=== PATIENT | female | born 1975 | race Caucasian/White ===

== ENCOUNTER → 2016-11-14 | Outpatient (CLI) | payer MEDICAID ==
[~2016-11-14] MED LIST: ALLERGY10 M1 PO; CRYSELLE 30 MCG1 TAB PO; FLONASE16 GM; KEFLEX 500MG.500 MG PO; NAPROSYN500 M1 PO; OMEPRAZOLE40 MG PO; PREDNISONE 20MG20 MG PO; VENTOLIN H0.09 MG/AC IH
[2016-11-14 08:10] LABS: URINE BILIRUBIN - DIPSTICK NEGATIVE (NEG); URINE BLOOD 1+ (NEG)
[2016-11-14 08:23] LABS: HEMOGLOBIN 12.4 g/dL (12.2-16.2); LYMPH # 2.3 K/mm3 (0.7-4.5); LYMPH % 25.6 % (10-50.0)
[2016-11-14 09:02] LABS: BUN 15 mg/dL (7-18)
[2016-11-14 09:08] LABS: GFR (ESTIMATED) 68 ML/MIN (59-)
== END ==
LOC: LAB 07:50
PROVIDERS: Family Medicine
DX: Z00.00 Encounter for general adult medical examination without abnormal findings (principal); E66.9 Obesity, unspecified